=== PATIENT | female | born 1965 | race Caucasian/White ===

== ENCOUNTER 2019-07-11 11:03 | Day surgery (SDC) | payer BC, OTHER ==
[~2019-07-11] VITALS: Ht 165.1 cm; Wt 61.6 kg
[~2019-07-11 11:03] MED LIST: B-121000 MC3 PO; MAGNESIUM OXID500 M1 PO; Melatonin1 MG PO; VITAMIN D325 MCG PO
== END 2019-07-11 13:10 | disposition home or self-care (01) ==
LOC: ORSCSDS 11:03
PROVIDERS: Internal Medicine Gastroenterology
PROC: 0DBK8ZX Excision of Ascending Colon, Via Natural or Artificial Opening Endoscopic, Diagnostic (ICD-10-PCS; principal; 2019-07-11 12:15)
DX: Z12.11 Encounter for screening for malignant neoplasm of colon (principal); D12.2 Benign neoplasm of ascending colon; K64.8 Other hemorrhoids; F17.210 Nicotine dependence, cigarettes, uncomplicated
CPT/HCPCS: 88305; J2704; J7120

== ENCOUNTER → 2021-01-22 | Outpatient (CLI) | payer BC, OTHER | END | disposition home or self-care (01) | LOC: LAB SHORT 11:52 → LAB 11:52 | DX: D22.71 Melanocytic nevi of right lower limb, including hip (principal) | CPT/HCPCS: 88305 ==

== ENCOUNTER 2022-04-16 07:08 | Day surgery (SDC) | payer BC, OTHER ==
[~2022-04-16] VITALS: Ht 165.1 cm; Wt 63.7 kg
[2022-04-16] MEDS ORDERED: PROG100 PO (07:43)
--- NOTE | 2022-04-16 09:01 | NUR ---
04/16/22 0901 REFUGIO RAE DEFICIT OF [id number] DR. CAROLYNN DAVEY
--- NOTE | 2022-04-16 09:53 | NUR ---
04/16/22 0953 MARVIN FRIED PT VOIDED PRIOR TO DC
== END 2022-04-16 09:53 | disposition home or self-care (01) ==
LOC: ORSCSDS 07:08
PROVIDERS: Obstetrics & Gynecology
PROC: 0UB97ZX Excision of Uterus, Via Natural or Artificial Opening, Diagnostic (ICD-10-PCS; principal; 2022-04-16 08:15)
PROC: 0UJD8ZZ Inspection of Uterus and Cervix, Via Natural or Artificial Opening Endoscopic (ICD-10-PCS; principal; 2022-04-16 08:15)
PROC: 0UDB7ZX Extraction of Endometrium, Via Natural or Artificial Opening, Diagnostic (ICD-10-PCS; principal; 2022-04-16 08:15)
DX: N95.0 Postmenopausal bleeding (principal); N84.0 Polyp of corpus uteri; F17.210 Nicotine dependence, cigarettes, uncomplicated
CPT/HCPCS: 88305; J1100; J1885; J2405; J2704; J3010; J7120